=== PATIENT | male | born 1985 | race African-American/Black ===

== ENCOUNTER 2017-08-19 21:26 | Emergency (ER) | payer OTHER ==
[~2017-08-19] VITALS: Ht 172.7 cm; Wt 108.9 kg
[~2017-08-19 21:26] MED LIST: AUGMENTIN 875875 MG PO; FLEXERIL PO; HYDROCODONE-AP1 EAC6 PO; IBUPROFEN 800800 M1 PO; KEFLEX500 MG PO; VERAPAMIL ER100 MG PO
[2017-08-19] MEDS ORDERED: IBUPROFEN 600600 M1 PO (22:32)
[2017-08-19 23:03] VITALS: BP 140/91
== END 2017-08-19 23:10 | disposition home or self-care (01) ==
LOC: M.ERS 21:26
DX: S86.002A Unspecified injury of left Achilles tendon, initial encounter (principal); G43.909 Migraine, unspecified, not intractable, without status migrainosus; X58.XXXA Exposure to other specified factors, initial encounter; Y93.67 Activity, basketball; Y92.89 Other specified places as the place of occurrence of the external cause; Y99.8 Other external cause status

== ENCOUNTER 2019-07-28 07:37 | Emergency (ER) | payer OTHER ==
[~2019-07-28] VITALS: Ht 172.7 cm; Wt 99.8 kg
[~2019-07-28 07:37] MED LIST changes: +IBUPROFEN 600600 M1 PO
[2019-07-28 08:10] LABS: BE 1.1 mmol/L (-2 to +3); PCO2 45.1 mmHg (35.0-45.0); PO2 79.7 mmHg (75.0-100.0); pH 7.388 (7.340-7.450)
[2019-07-28 08:31] LABS: INFLUENZA A ANTIGEN Negative (Negative); INFLUENZA B ANTIGEN Negative (Negative)
[2019-07-28 08:50] VITALS: BP 154/86
== END 2019-07-28 08:51 | disposition home or self-care (01) ==
LOC: M.ERS 07:37
PROVIDERS: Emergency Medicine Emergency Medical Services
DX: J06.9 Acute upper respiratory infection, unspecified (principal); G43.909 Migraine, unspecified, not intractable, without status migrainosus